=== PATIENT | female | born 1940 | race Caucasian/White ===

== ENCOUNTER 2021-11-04 15:04 | Inpatient (IN) ==
[2021-11-04] MEDS ORDERED: Ondansetron ODT 4 MG TAB.RAPDIS SL PRN (15:19)
[2021-11-04] MEDS: Acetaminophen 325 MG TABLET PO PRN (21:47)
[2021-11-05 07:31] LABS: INR 1.2; Prothrombin Time 13.1 Seconds (9.4-12.1)
[2021-11-05 07:39] LABS: BUN/Creatinine Ratio 19 (6-26); Blood Urea Nitrogen 13 mg/dL (8-23); Calcium 8.4 mg/dL (8.6-10.3); Carbon Dioxide 31 mEq/L (23-29); Chloride 105 mEq/L (98-107); Glucose 96 mg/dL (70-105); Osmolality,Calculated 296 (280-300); Potassium 3.2 mEq/L (3.5-5.1); Sodium 143 mEq/L (136-145); eGFR For African Americans > 60 (> 60); eGFR For Non-African Americans > 60 (> 60)
[2021-11-05] MEDS: Aspirin Enteric Coated 81 MG Tablet PO SCH (08:55)
[2021-11-05] MEDS: Cholecalciferol (D-3) 1,000 UNIT (25MCG) TABLET PO SCH (08:55)
[2021-11-05] MEDS: Multivit/Ca/Min/Fe/FA 1 TAB TABLET PO SCH (08:55)
[2021-11-05 12:08] LABS: Basophils # 0.1 K/mcL (0.0-0.2); Basophils % 1.5 %; Eosinophils # 0.1 K/mcL (0.0-0.6); Eosinophils % 3.5 %; Hematocrit 27.4 % (35.3-44.9); Immature Granulocytes % 0.3 % (0-4); Lymphocytes % 18.7 %; Mean Corpuscular HGB Conc 29.2 g/dL (31.6-35.5); Mean Corpuscular Hemoglobin 25.4 pg (28.0-33.3); Mean Platelet Volume 8.9 fL (9.4-12.4); Monocytes # 0.4 K/mcL (0.0-1.3); Monocytes % 10.6 %; Neutrophils # 2.6 K/mcL (1.6-8.9); Platelet Count 511 K/mcL (140-400); Red Blood Count 3.15 M/mcL (3.82-4.97); Red Cell Distribution Width 20.2 % (11.5-14.5); Segmented Neutrophils % 65.4 %
[2021-11-05 12:16] LABS: Lymphocytes # 0.8 K/mcL (0.6-4.6)
[2021-11-05] MEDS ORDERED: Potassium Chloride Elixir 20 MEQ/15 ML UDC PO ONE (16:20)
[2021-11-06] MEDS: Acetaminophen 325 MG TABLET PO PRN ×2 (00:45→08:27)
[2021-11-06] MEDS: *HR* Enoxaparin 40 MG/0.4 ML SYRINGE SQ SCH (05:13)
[2021-11-06] MEDS: Multivit/Ca/Min/Fe/FA 1 TAB TABLET PO SCH (08:27)
[2021-11-06] MEDS: Aspirin Enteric Coated 81 MG Tablet PO SCH (08:27)
[2021-11-06] MEDS: Cholecalciferol (D-3) 1,000 UNIT (25MCG) TABLET PO SCH (08:27)
[2021-11-07] MEDS: *HR* Enoxaparin 40 MG/0.4 ML SYRINGE SQ SCH (05:48)
[2021-11-07] MEDS ORDERED: 0.9 % Sodium Chloride 500 ML IVC ONE (08:17)
[2021-11-07 08:40] LABS: Basophils % 0.9 %; Eosinophils # 0.2 K/mcL (0.0-0.6); Eosinophils % 4.5 %; Hematocrit 28.2 % (35.3-44.9); Hemoglobin 8.4 g/dL (11.5-15.4); Immature Granulocytes % 0.4 % (0-4); Lymphocytes # 1.3 K/mcL (0.6-4.6); Lymphocytes % 27.7 %; Mean Corpuscular HGB Conc 29.8 g/dL (31.6-35.5); Mean Corpuscular Hemoglobin 25.8 pg (28.0-33.3); Mean Corpuscular Volume 86.5 fL (83.0-100.0); Mean Platelet Volume 8.7 fL (9.4-12.4); Monocytes # 0.5 K/mcL (0.0-1.3); Monocytes % 10.3 %; Neutrophils # 2.6 K/mcL (1.6-8.9); Platelet Count 492 K/mcL (140-400); Red Blood Count 3.26 M/mcL (3.82-4.97); Red Cell Distribution Width 20.2 % (11.5-14.5); Segmented Neutrophils % 56.2 %; White Blood Count 4.7 K/mcL (4.3-11.1)
[2021-11-07] MEDS: Aspirin Enteric Coated 81 MG Tablet PO SCH (08:49)
[2021-11-07] MEDS: Multivit/Ca/Min/Fe/FA 1 TAB TABLET PO SCH (08:49)
[2021-11-07] MEDS: Cholecalciferol (D-3) 1,000 UNIT (25MCG) TABLET PO SCH (08:49)
[2021-11-07 09:02] LABS: BUN/Creatinine Ratio 14 (6-26); Blood Urea Nitrogen 12 mg/dL (8-23); Calcium 8.7 mg/dL (8.6-10.3); Carbon Dioxide 27 mEq/L (23-29); Chloride 103 mEq/L (98-107); Glucose 136 mg/dL (70-105); Osmolality,Calculated 294 (280-300); Potassium 3.1 mEq/L (3.5-5.1); Sodium 141 mEq/L (136-145); eGFR For African Americans > 60 (> 60); eGFR For Non-African Americans > 60 (> 60)
[2021-11-07] MEDS: Acetaminophen 325 MG TABLET PO PRN (09:26)
[2021-11-08] MEDS: *HR* Enoxaparin 40 MG/0.4 ML SYRINGE SQ SCH (05:16)
[2021-11-08] MEDS: Cholecalciferol (D-3) 1,000 UNIT (25MCG) TABLET PO SCH (07:59)
[2021-11-08] MEDS: Aspirin Enteric Coated 81 MG Tablet PO SCH (07:59)
[2021-11-08] MEDS: Acetaminophen 325 MG TABLET PO PRN (07:59)
[2021-11-08] MEDS: Multivit/Ca/Min/Fe/FA 1 TAB TABLET PO SCH (07:59)
[2021-11-08 09:09] LABS: BUN/Creatinine Ratio 18 (6-26); Blood Urea Nitrogen 14 mg/dL (8-23); Calcium 8.9 mg/dL (8.6-10.3); Carbon Dioxide 26 mEq/L (23-29); Chloride 106 mEq/L (98-107); Glucose 107 mg/dL (70-105); Osmolality,Calculated 297 (280-300); Potassium 3.7 mEq/L (3.5-5.1); Sodium 143 mEq/L (136-145); eGFR For African Americans > 60 (> 60); eGFR For Non-African Americans > 60 (> 60)
[2021-11-08] MEDS: Magnesium Oxide 400 MG TABLET PO SCH (09:33)
[2021-11-09] MEDS: *HR* Enoxaparin 40 MG/0.4 ML SYRINGE SQ SCH (05:56)
[2021-11-09] MEDS: Aspirin Enteric Coated 81 MG Tablet PO SCH (09:22)
[2021-11-09] MEDS: Cholecalciferol (D-3) 1,000 UNIT (25MCG) TABLET PO SCH (09:23)
[2021-11-09] MEDS: Multivit/Ca/Min/Fe/FA 1 TAB TABLET PO SCH (09:24)
[2021-11-09] MEDS: Magnesium Oxide 400 MG TABLET PO SCH (09:25)
[2021-11-10] MEDS: *HR* Enoxaparin 40 MG/0.4 ML SYRINGE SQ SCH (06:00)
[2021-11-10] MEDS: Aspirin Enteric Coated 81 MG Tablet PO SCH (09:07)
[2021-11-10] MEDS: Magnesium Oxide 400 MG TABLET PO SCH (09:07)
[2021-11-10] MEDS: Multivit/Ca/Min/Fe/FA 1 TAB TABLET PO SCH (09:08)
[2021-11-10] MEDS: Cholecalciferol (D-3) 1,000 UNIT (25MCG) TABLET PO SCH (09:08)
[2021-11-11] MEDS: *HR* Enoxaparin 40 MG/0.4 ML SYRINGE SQ SCH (06:07)
[2021-11-11] MEDS: Acetaminophen 325 MG TABLET PO PRN (08:26)
[2021-11-11] MEDS: Cholecalciferol (D-3) 1,000 UNIT (25MCG) TABLET PO SCH (08:27)
[2021-11-11] MEDS: Multivit/Ca/Min/Fe/FA 1 TAB TABLET PO SCH (08:27)
[2021-11-11] MEDS: Magnesium Oxide 400 MG TABLET PO SCH (08:27)
[2021-11-11] MEDS: Aspirin Enteric Coated 81 MG Tablet PO SCH (08:27)
[2021-11-11 09:13] LABS: Basophils # 0.1 K/mcL (0.0-0.2); Basophils % 0.7 %; Eosinophils # 0.4 K/mcL (0.0-0.6); Eosinophils % 6.2 %; Hematocrit 28.3 % (35.3-44.9); Hemoglobin 8.4 g/dL (11.5-15.4); Immature Granulocytes % 0.1 % (0-4); Lymphocytes # 1.4 K/mcL (0.6-4.6); Lymphocytes % 20.7 %; Mean Corpuscular HGB Conc 29.7 g/dL (31.6-35.5); Mean Corpuscular Hemoglobin 25.5 pg (28.0-33.3); Mean Platelet Volume 8.8 fL (9.4-12.4); Monocytes # 0.5 K/mcL (0.0-1.3); Monocytes % 7.9 %; Neutrophils # 4.4 K/mcL (1.6-8.9); Platelet Count 538 K/mcL (140-400); Red Blood Count 3.29 M/mcL (3.82-4.97); Red Cell Distribution Width 19.2 % (11.5-14.5); Segmented Neutrophils % 64.4 %; White Blood Count 6.8 K/mcL (4.3-11.1)
[2021-11-11 09:29] LABS: BUN/Creatinine Ratio 18 (6-26); Blood Urea Nitrogen 15 mg/dL (8-23); Carbon Dioxide 29 mEq/L (23-29); Chloride 103 mEq/L (98-107); Glucose 141 mg/dL (70-105); Osmolality,Calculated 295 (280-300); Potassium 3.8 mEq/L (3.5-5.1); Sodium 141 mEq/L (136-145); eGFR For African Americans > 60 (> 60); eGFR For Non-African Americans > 60 (> 60)
[2021-11-12] MEDS: Aspirin Enteric Coated 81 MG Tablet PO SCH (08:12)
[2021-11-12] MEDS: *HR* Enoxaparin 40 MG/0.4 ML SYRINGE SQ SCH (08:12)
[2021-11-12] MEDS: Multivit/Ca/Min/Fe/FA 1 TAB TABLET PO SCH (08:12)
[2021-11-12] MEDS: Cholecalciferol (D-3) 1,000 UNIT (25MCG) TABLET PO SCH (08:12)
[2021-11-12] MEDS: Magnesium Oxide 400 MG TABLET PO SCH (08:17)
[2021-11-12] MEDS: Acetaminophen 325 MG TABLET PO PRN (10:04)
[2021-11-13] MEDS: *HR* Enoxaparin 40 MG/0.4 ML SYRINGE SQ SCH (05:44)
[2021-11-13] MEDS: Cholecalciferol (D-3) 1,000 UNIT (25MCG) TABLET PO SCH (09:01)
[2021-11-13] MEDS: Aspirin Enteric Coated 81 MG Tablet PO SCH (09:01)
[2021-11-13] MEDS: Multivit/Ca/Min/Fe/FA 1 TAB TABLET PO SCH (09:01)
[2021-11-13] MEDS: Magnesium Oxide 400 MG TABLET PO SCH (09:02)
[2021-11-13] MEDS: Acetaminophen 325 MG TABLET PO PRN (09:03)
[2021-11-13 09:17] LABS: Hematocrit 27.7 % (35.3-44.9); Hemoglobin 8.1 g/dL (11.5-15.4); Mean Corpuscular HGB Conc 29.2 g/dL (31.6-35.5); Mean Corpuscular Hemoglobin 25.1 pg (28.0-33.3); Mean Corpuscular Volume 85.8 fL (83.0-100.0); Mean Platelet Volume 8.7 fL (9.4-12.4); Platelet Count 567 K/mcL (140-400); Red Blood Count 3.23 M/mcL (3.82-4.97); Red Cell Distribution Width 18.7 % (11.5-14.5); White Blood Count 6.7 K/mcL (4.3-11.1)
[2021-11-13 09:47] LABS: BUN/Creatinine Ratio 23 (6-26); Blood Urea Nitrogen 18 mg/dL (8-23); Calcium 8.9 mg/dL (8.6-10.3); Carbon Dioxide 28 mEq/L (23-29); Chloride 104 mEq/L (98-107); Glucose 130 mg/dL (70-105); Osmolality,Calculated 294 (280-300); Potassium 3.9 mEq/L (3.5-5.1); Sodium 140 mEq/L (136-145); eGFR For African Americans > 60 (> 60); eGFR For Non-African Americans > 60 (> 60)
[2021-11-14] MEDS: *HR* Enoxaparin 40 MG/0.4 ML SYRINGE SQ SCH (05:37)
[2021-11-14] MEDS: Aspirin Enteric Coated 81 MG Tablet PO SCH (09:20)
[2021-11-14] MEDS: Cholecalciferol (D-3) 1,000 UNIT (25MCG) TABLET PO SCH (09:21)
[2021-11-14] MEDS: Magnesium Oxide 400 MG TABLET PO SCH (09:21)
[2021-11-14] MEDS: Multivit/Ca/Min/Fe/FA 1 TAB TABLET PO SCH (09:21)
[2021-11-14] MEDS: Acetaminophen 325 MG TABLET PO PRN (15:01)
[2021-11-15] MEDS: *HR* Enoxaparin 40 MG/0.4 ML SYRINGE SQ SCH (06:12)
[2021-11-15] MEDS: Magnesium Oxide 400 MG TABLET PO SCH (08:12)
[2021-11-15] MEDS: Cholecalciferol (D-3) 1,000 UNIT (25MCG) TABLET PO SCH (08:12)
[2021-11-15] MEDS: Multivit/Ca/Min/Fe/FA 1 TAB TABLET PO SCH (08:12)
[2021-11-15] MEDS: Aspirin Enteric Coated 81 MG Tablet PO SCH (08:12)
[2021-11-15] MEDS: Acetaminophen 325 MG TABLET PO PRN (13:26)
[2021-11-16] MEDS: *HR* Enoxaparin 40 MG/0.4 ML SYRINGE SQ SCH (05:37)
[2021-11-16] MEDS: Cholecalciferol (D-3) 1,000 UNIT (25MCG) TABLET PO SCH (10:05)
[2021-11-16] MEDS: Aspirin Enteric Coated 81 MG Tablet PO SCH (10:05)
[2021-11-16] MEDS: Multivit/Ca/Min/Fe/FA 1 TAB TABLET PO SCH (10:05)
[2021-11-16] MEDS: Magnesium Oxide 400 MG TABLET PO SCH (10:55)
[2021-11-16] MEDS: Acetaminophen 325 MG TABLET PO PRN (11:21)
[2021-11-17] MEDS: *HR* Enoxaparin 40 MG/0.4 ML SYRINGE SQ SCH (06:06)
[2021-11-17] MEDS: Aspirin Enteric Coated 81 MG Tablet PO SCH (09:54)
[2021-11-17] MEDS: Cholecalciferol (D-3) 1,000 UNIT (25MCG) TABLET PO SCH (09:56)
[2021-11-17] MEDS: Multivit/Ca/Min/Fe/FA 1 TAB TABLET PO SCH (09:56)
[2021-11-17] MEDS: Magnesium Oxide 400 MG TABLET PO SCH (10:18)
[2021-11-17 13:12] LABS: Hematocrit 26.6 % (35.3-44.9); Hemoglobin 7.9 g/dL (11.5-15.4); Mean Corpuscular HGB Conc 29.7 g/dL (31.6-35.5); Mean Corpuscular Hemoglobin 25.3 pg (28.0-33.3); Mean Corpuscular Volume 85.3 fL (83.0-100.0); Mean Platelet Volume 8.6 fL (9.4-12.4); Platelet Count 597 K/mcL (140-400); Red Blood Count 3.12 M/mcL (3.82-4.97); Red Cell Distribution Width 18.6 % (11.5-14.5); White Blood Count 6.3 K/mcL (4.3-11.1)
[2021-11-17 13:29] LABS: BUN/Creatinine Ratio 24 (6-26); Blood Urea Nitrogen 22 mg/dL (8-23); Calcium 9.2 mg/dL (8.6-10.3); Carbon Dioxide 29 mEq/L (23-29); Chloride 103 mEq/L (98-107); Glucose 104 mg/dL (70-105); Osmolality,Calculated 294 (280-300); Sodium 140 mEq/L (136-145); eGFR For African Americans > 60 (> 60); eGFR For Non-African Americans 58 (> 60)
[2021-11-17] MEDS: Acetaminophen 325 MG TABLET PO PRN (14:51)
[2021-11-18] MEDS: *HR* Enoxaparin 40 MG/0.4 ML SYRINGE SQ SCH (05:33)
[2021-11-18] MEDS: Magnesium Oxide 400 MG TABLET PO SCH (08:21)
[2021-11-18] MEDS: Multivit/Ca/Min/Fe/FA 1 TAB TABLET PO SCH (08:21)
[2021-11-18] MEDS: Cholecalciferol (D-3) 1,000 UNIT (25MCG) TABLET PO SCH (08:21)
[2021-11-18] MEDS: Aspirin Enteric Coated 81 MG Tablet PO SCH (08:21)
[2021-11-18 10:11] LABS: Thyroid Stimulating Hormone 1.96 mcIU/mL (0.340-5.600)
[2021-11-18] MEDS: Acetaminophen 325 MG TABLET PO PRN ×2 (10:28→19:50)
[2021-11-18 12:41] LABS: Triiodothyronine (T3) Free 3.24 pg/mL (2.50-3.90)
[2021-11-19] MEDS: *HR* Enoxaparin 40 MG/0.4 ML SYRINGE SQ SCH (05:57)
[2021-11-19] MEDS: Cholecalciferol (D-3) 1,000 UNIT (25MCG) TABLET PO SCH (08:22)
[2021-11-19] MEDS: Aspirin Enteric Coated 81 MG Tablet PO SCH (08:22)
[2021-11-19] MEDS: Multivit/Ca/Min/Fe/FA 1 TAB TABLET PO SCH (08:22)
[2021-11-19] MEDS: Magnesium Oxide 400 MG TABLET PO SCH (09:13)
[2021-11-19] MEDS: Sennosides 8.6 MG TABLET PO PRN (16:17)
[2021-11-19] MEDS: Acetaminophen 325 MG TABLET PO PRN (16:17)
[2021-11-20] MEDS: *HR* Enoxaparin 40 MG/0.4 ML SYRINGE SQ SCH (05:46)
[2021-11-20] MEDS: Cholecalciferol (D-3) 1,000 UNIT (25MCG) TABLET PO SCH (07:56)
[2021-11-20] MEDS: Multivit/Ca/Min/Fe/FA 1 TAB TABLET PO SCH (07:56)
[2021-11-20] MEDS: Magnesium Oxide 400 MG TABLET PO SCH (07:56)
[2021-11-20] MEDS: Aspirin Enteric Coated 81 MG Tablet PO SCH (07:57)
[2021-11-20] MEDS: Acetaminophen 325 MG TABLET PO PRN (12:58)
[2021-11-20] MEDS: Sennosides 8.6 MG TABLET PO PRN (15:11)
[2021-11-21] MEDS: *HR* Enoxaparin 40 MG/0.4 ML SYRINGE SQ SCH (05:57)
[2021-11-21] MEDS: Magnesium Oxide 400 MG TABLET PO SCH (08:55)
[2021-11-21] MEDS: Cholecalciferol (D-3) 1,000 UNIT (25MCG) TABLET PO SCH (08:57)
[2021-11-21] MEDS: Multivit/Ca/Min/Fe/FA 1 TAB TABLET PO SCH (08:57)
[2021-11-21] MEDS: Aspirin Enteric Coated 81 MG Tablet PO SCH (08:57)
[2021-11-21] MEDS: Acetaminophen 325 MG TABLET PO PRN (14:58)
[2021-11-21] MEDS: Sennosides 8.6 MG TABLET PO PRN (14:58)
[2021-11-21 21:44] VITALS: PULSE 101; RESP 20
[2021-11-22] MEDS: *HR* Enoxaparin 40 MG/0.4 ML SYRINGE SQ SCH (06:21)
[2021-11-22] MEDS: Cholecalciferol (D-3) 1,000 UNIT (25MCG) TABLET PO SCH (08:53)
[2021-11-22] MEDS: Multivit/Ca/Min/Fe/FA 1 TAB TABLET PO SCH (08:53)
[2021-11-22] MEDS: Aspirin Enteric Coated 81 MG Tablet PO SCH (08:54)
[2021-11-22 08:56] VITALS: BP 122/65; TEMP 97.9; O2SAT 94
[2021-11-22] MEDS: Magnesium Oxide 400 MG TABLET PO SCH (09:39)
[2021-11-22] MEDS ORDERED: FLU Vac QV 21-22 (6Month+)/PF 0.5 ML SYRINGE IM ONE (10:31)
== END 2021-11-22 11:57 | disposition home health service (06) | DRG 885 ==
LOC: INPPIK 16:03
PROVIDERS: ADMIT Family Medicine; ATTEND Family Medicine